=== PATIENT | female | born 1960 | race Caucasian/White ===

== ENCOUNTER 2017-01-14 08:32 | Outpatient (CLI) | payer BC | END 2017-01-14 08:33 | disposition home or self-care (01) | DX: Z12.31 Encounter for screening mammogram for malignant neoplasm of breast (principal) ==

== ENCOUNTER 2017-01-14 08:33 | Outpatient (CLI) | payer BC | END 2017-01-14 08:34 | disposition home or self-care (01) | DX: M85.89 Other specified disorders of bone density and structure, multiple sites (principal); Z82.62 Family history of osteoporosis ==

== ENCOUNTER 2017-03-08 11:03 | Outpatient (CLI) | payer BC | END 2017-03-08 11:04 | disposition home or self-care (01) | LOC: SC 11:03 | PROVIDERS: ATTEND Internal Medicine Pulmonary Disease | DX: G47.30 Sleep apnea, unspecified (principal); G47.8 Other sleep disorders; R06.83 Snoring; R51 Headache; G47.10 Hypersomnia, unspecified | CPT/HCPCS: 99203; 99212 ==

== ENCOUNTER 2017-04-22 09:26 | Outpatient (CLI) | payer BC | END 2017-04-22 09:27 | disposition home or self-care (01) | LOC: SC 09:26 | PROVIDERS: ATTEND Nurse Practitioner Family | DX: G47.8 Other sleep disorders (principal); R06.83 Snoring; G47.30 Sleep apnea, unspecified; R51 Headache; G47.10 Hypersomnia, unspecified | CPT/HCPCS: 99212; 99214 ==

== ENCOUNTER 2018-01-24 15:18 | Outpatient (CLI) | payer BC ==
--- NOTE | 2018-01-25 12:40 | Mammography Report ---
DIGITAL SCREENING MAMMOGRAM: 01/24/2018 CLINICAL INDICATION: A 57-year-old nulliparous patient for screening. COMPARISON: 01/2017, 11/2015, 10/2015, 06/2014, 03/2013. TECHNIQUE: Routine CC and MLO projections as well as bilateral laterally exaggerated craniocaudal views were obtained of the breasts. FINDINGS: The breasts again demonstrate heterogeneously dense fibroglandular parenchyma bilaterally. Coarse and punctate, typically benign calcifications are present. No suspicious masses, clustered microcalcifications, or regions of architectural distortion are identified. IMPRESSION: BENIGN FINDINGS. RECOMMENDATION: Routine annual screening unless otherwise clinically indicated. BI-RADS CATEGORY 2 - BENIGN FINDINGS. STANDARD QUALIFYING STATEMENTS: 1. This examination was reviewed with the aid of Computer-Aided Detection (CAD). 2. A negative or benign imaging report should not delay biopsy if clinically suspicious findings are present. Consider surgical consultation if warranted. More than 5% of cancers are not identified by imaging. 3. Dense breasts may obscure an underlying neoplasm. TD: 01/25/2018 12:16
== END 2018-01-24 15:19 | disposition home or self-care (01) ==
LOC: DI 15:18
PROVIDERS: ATTEND Physician Assistant
DX: Z12.31 Encounter for screening mammogram for malignant neoplasm of breast (principal)
CPT/HCPCS: 77067

== ENCOUNTER 2018-08-08 12:51 | Outpatient (CLI) | payer BC | END 2018-08-08 12:52 | disposition home or self-care (01) | LOC: LAB.F 12:51 | PROVIDERS: ATTEND Nurse Practitioner Family | DX: Z85.43 Personal history of malignant neoplasm of ovary (principal); Z85.42 Personal history of malignant neoplasm of other parts of uterus | CPT/HCPCS: 36415; 86304 ==

== ENCOUNTER 2018-09-02 10:21 | Outpatient (CLI) | payer BC ==
--- NOTE | 2018-09-02 14:05 | Ultrasound Report ---
Reason: INGUINAL ADENOPATHY Procedure Date: 09/02/2018 Accession Number: [id number] / [id number] Procedure: US - Abdomen Limited CPT Code: FULL RESULT: EXAM: ABDOMEN ULTRASOUND LIMITED, RIGHT UPPER QUADRANT. EXAM DATE: 09/02/2018 11:06 AM. CLINICAL HISTORY: Left inguinal adenopathy. History of ovarian cancer. COMPARISON: Abdomen and pelvis with 08/25/2015 10:47 AM, abdomen and pelvis without 08/06/2013 9:01 AM. TECHNIQUE: Real-time scanning was performed with static images obtained. FINDINGS: Left inguinal region: There are several normal-sized/normal morphology inguinal lymph nodes demonstrated on this exam, the largest measuring 1.5 cm in length by roughly 0.4 cm in transverse. A similar size lymph node is evident on comparison CT from 2012. For purposes of comparison, imaging of the right inguinal region demonstrates similar-appearing lymph nodes, largest of which measures 1.6 cm in length. IMPRESSION: Normal size and morphology of bilateral inguinal lymph nodes, likely unchanged from comparison CT of 2013. If this ultrasound result is discordant with physical exam findings, consider cross-sectional imaging with CT for definitive/comprehensive imaging assessment of pelvic and inguinal nodes. RADIA
== END 2018-09-02 10:22 | disposition home or self-care (01) ==
LOC: DI 10:21
PROVIDERS: ATTEND Nurse Practitioner Family
DX: R59.0 Localized enlarged lymph nodes (principal); Z85.43 Personal history of malignant neoplasm of ovary
CPT/HCPCS: 76705

== ENCOUNTER 2019-02-27 15:26 | Outpatient (CLI) | payer BC ==
--- NOTE | 2019-02-28 12:22 | Mammography Report ---
Reason: ENCOUNTER FOR SCREENING MAMMOGRAM FOR MALIGNANT NE Procedure Date: 02/27/2019 Accession Number: [id number] / [id number] Procedure: TETE - Screening Mammo w/Sander CPT Code: FULL RESULT: EXAM: Screening Mammo w/Sander DATE: 02/27/2019 4:01 PM CLINICAL HISTORY: Screening encounter. History of nulliparity. TECHNIQUE: (B) - Bilateral CC, laterally exaggerated CC, MLO views were obtained. COMPARISON: 01/24/2018 through 07/09/2014. PARENCHYMAL PATTERN: (D) - The breast(s) demonstrate(s) heterogeneously dense fibroglandular parenchyma. FINDINGS: There are coarse typically benign calcifications. There are no suspicious masses, calcifications, or areas of distortion. IMPRESSION: Benign findings. BI-RADS category 2. RECOMMENDATION: (ANNUAL) - Recommend routine annual screening mammography. BI-RADS CATEGORY: (2) - Benign Findings. STANDARD QUALIFYING STATEMENTS: 1. This examination was not reviewed with the aid of Computer-Aided Detection (CAD). 2. A negative or benign imaging report should not preclude biopsy if clinically suspicious findings are present. 3. Dense breasts may obscure an underlying neoplasm. 4. This examination was reviewed with the aid of 3D breast imaging (tomosynthesis).
== END 2019-02-27 15:27 | disposition home or self-care (01) ==
LOC: DI 15:26
PROVIDERS: ATTEND Physician Assistant
DX: Z12.31 Encounter for screening mammogram for malignant neoplasm of breast (principal)
CPT/HCPCS: 77063; 77067

== ENCOUNTER 2020-03-25 14:12 | Outpatient (CLI) | payer BC ==
--- NOTE | 2020-03-25 18:06 | DEXA Report ---
Reason: DISORDER OF BONE Procedure Date: 03/25/2020 Accession Number: [id number] / [id number] Procedure: DEX - Dexa Spine and/or Hip CPT Code: Final Report FULL RESULT: PROCEDURE: Dexa Spine and/or Hip INDICATIONS: DISORDER OF BONE TECHNIQUE: Dual energy x-ray absorptiometry (DXA) was performed on a [employer] System. Regions measured are the AP Spine, femoral neck, and if needed forearm. COMPARISON: None. FINDINGS: Lumbar Spine: Bone Mineral Density 0.923 g/cm/cm,T score -2.1, osteopenia Left Hip: Bone Mineral Density 0.808 g/cm/cm,T score -1.6, osteopenia Left Femoral Neck: Bone Mineral Density 0.794 g/cm/cm, T score -1.8, osteopenia (T score greater or equal to -1.0: NORMAL) (T score from -1.1 to -2.4: OSTEOPENIA) (T score less than or equal to -2.5 to: OSTEOPOROSIS) Impression: Osteopenia. Patients with diagnosis of osteoporosis or osteopenia should have regular bone mineral density assessment. For those eligible for Medicare, routine testing is allowed once every 2 years. Testing frequency can be increased for patients who have rapidly progressing disease or for those who are receiving medical therapy to restore bone mass. Reviewed by: Gauri Newell MD, PhD on 03/25/2020 6:05 PM PDT Approved by: Gauri Newell MD, PhD on 03/25/2020 6:05 PM PDT Station ID: [id number]
== END 2020-03-25 14:13 | disposition home or self-care (01) ==
LOC: DI 14:12
PROVIDERS: ATTEND Registered Nurse
DX: M85.89 Other specified disorders of bone density and structure, multiple sites (principal)
CPT/HCPCS: 77080

== ENCOUNTER 2020-03-25 14:13 | Outpatient (CLI) | payer BC ==
--- NOTE | 2020-03-26 15:12 | Mammography Report ---
BILATERAL DIGITAL SCREENING MAMMOGRAM 3D/2D: 03/25/2020 CLINICAL: Routine screening. Comparison is made to exams dated: 02/27/2019 mammogram, 01/24/2018 mammogram, and 01/14/2017 mammogram - [facility]. The tissue of both breasts is heterogeneously dense. This may lower the sensitivity of mammography. No significant masses, calcifications, or other findings are seen in either breast. There has been no significant interval change. IMPRESSION: NEGATIVE There is no mammographic evidence of malignancy. A 1 year screening mammogram is recommended. This exam was interpreted at Station ID: [id number]. NOTE: For mammograms, a report in lay terms will be sent to the patient. Approximately 15% of breast malignancies will not be visualized mammographically. In the management of a palpable breast mass, a negative mammogram must not discourage biopsy of a clinically suspicious lesion. Electronically Signed By: Donn Rios M.D., jr/kathrine:03/25/2020 17:16:15 ACR BI-RADS Category 1: Negative 3341F PARENCHYMAL PATTERN: (D) - The breast(s) demonstrate(s) heterogeneously dense fibroglandular justyn deleon. BI-RADS CATEGORY: (1) - 1 RECOMMENDATION: (ANNUAL) - Recommend routine annual screening mammography. [id number] 1 year screening LATERALITY: (B)
== END 2020-03-25 14:14 | disposition home or self-care (01) ==
LOC: DI 14:13
PROVIDERS: ATTEND Registered Nurse
DX: Z12.31 Encounter for screening mammogram for malignant neoplasm of breast (principal)
CPT/HCPCS: 77063; 77067

== ENCOUNTER 2021-07-25 13:02 | Outpatient (CLI) | payer BC ==
--- NOTE | 2021-07-28 10:28 | Mammography Report ---
BILATERAL DIGITAL SCREENING MAMMOGRAM 3D/2D: 07/25/2021 CLINICAL: Routine screening. Comparison is made to exams dated: 03/25/2020 mammogram, 02/27/2019 mammogram, and 01/24/2018 mammogram - [facility]. The tissue of both breasts is heterogeneously dense. This may lower the sensitivity of mammography. No significant masses, calcifications, or other findings are seen in either breast. There has been no significant interval change. IMPRESSION: NEGATIVE There is no mammographic evidence of malignancy. A 1 year screening mammogram is recommended. This exam was interpreted at Station ID: [id number]. NOTE: For mammograms, a report in lay terms will be sent to the patient. Approximately 15% of breast malignancies will not be visualized mammographically. In the management of a palpable breast mass, a negative mammogram must not discourage biopsy of a clinically suspicious lesion. Electronically Signed By: Anushka franco/kathrine:07/25/2021 14:12:03 ACR BI-RADS Category 1: Negative 3341F PARENCHYMAL PATTERN: (D) - The breast(s) demonstrate(s) heterogeneously dense fibroglandular justyn deleon. BI-RADS CATEGORY: (1) - 1 RECOMMENDATION: (ANNUAL) - Recommend routine annual screening mammography. [id number] 1 year screening LATERALITY: (B)
== END 2021-07-25 13:03 | disposition home or self-care (01) ==
LOC: DI 13:02
PROVIDERS: ATTEND Registered Nurse
DX: Z12.31 Encounter for screening mammogram for malignant neoplasm of breast (principal)

== ENCOUNTER 2023-07-06 14:02 | Outpatient (CLI) | payer BC ==
--- NOTE | 2023-07-07 11:44 | Mammography Report ---
BILATERAL DIGITAL SCREENING MAMMOGRAM 3D/2D: 07/06/2023 CLINICAL: Routine screening. Comparison is made to exams dated: 07/25/2021 mammogram, 03/25/2020 mammogram, 02/27/2019 mammogram, mammogram, 01/14/2017 mammogram, and 11/27/2015 mammogram - [facility]. Both breasts are heterogeneously dense, which may obscure small masses (category c / 51-75% glandular tissue). No significant masses, calcifications, or other findings are seen in either breast. There has been no significant interval change. IMPRESSION: NEGATIVE There is no mammographic evidence of malignancy. A 1 year screening mammogram is recommended. Based on the Tyrer Cuzick model (a risk assessment model) the patients lifetime risk is 13.8% and he r 10 year risk is 6.8%. According to the ACR, ACS, and NCCN guidelines, an annual breast MRI exam félix ng with mammogram is recommended if the patients lifetime risk is 20% or greater. This exam was interpreted at Station ID: [id number]. NOTE: For mammograms, a report in lay terms will be sent to the patient. Approximately 15% of breast malignancies will not be visualized mammographically. In the management of a palpable breast mass, a negative mammogram must not discourage biopsy of a clinically suspicious lesion. Electronically Signed By: Rogers duval/kathrine:07/06/2023 17:55:18 letter sent: No_Letter ACR BI-RADS Category 1: Negative 3341F PARENCHYMAL PATTERN: (D) - The breast(s) demonstrate(s) heterogeneously dense fibroglandular justyn deleon. BI-RADS CATEGORY: (1) - 1 Mammogram [id number] 1 year screening LATERALITY: (B)
== END 2023-07-06 14:03 | disposition home or self-care (01) ==
LOC: DI 14:02
PROVIDERS: ATTEND Registered Nurse
DX: Z12.31 Encounter for screening mammogram for malignant neoplasm of breast (principal); R92.333 Mammographic heterogeneous density, bilateral breasts

== ENCOUNTER 2023-08-03 12:59 | Outpatient (CLI) | payer BC ==
--- NOTE | 2023-08-03 14:39 | DEXA Report ---
PROCEDURE: Dexa Spine and/or Hip INDICATIONS: OSTEOPENIA TECHNIQUE: Dual energy x-ray absorptiometry (DXA) was performed on a [employer] System. Regions measur ed are the AP Spine, femoral neck, and if needed forearm. COMPARISON: Osteopenia FINDINGS: Lumbar Spine: Bone Mineral Density 0.898 g/cm/cm,T score -2.4. Osteopenia Left Femoral Neck: Bone Mineral Density 0.765 g/cm/cm, T score -2.0. Left Hip: Bone Mineral Density 0.766 g/cm/cm,T score -1.9. Osteopenia (T score greater or equal to -1.0: NORMAL) (T score from -1.1 to -2.4: OSTEOPENIA) (T score less than or equal to -2.5 to: OSTEOPOROSIS) Impression: By WHO criteria, this patient has low bone density (osteopenia). Patients with diagnosis of osteoporosis or osteopenia should have regular bone mineral density assess ment. For those eligible for Medicare, routine testing is allowed once every 2 years. Testing frequ ency can be increased for patients who have rapidly progressing disease or for those who are receivin g medical therapy to restore bone mass. Reviewed by: Eloy Ramos on 08/03/2023 2:38 PM PST Approved by: Eloy Ramos on 08/03/2023 2:38 PM PST Station ID: [id number]
== END 2023-08-03 13:00 | disposition home or self-care (01) ==
LOC: DI 12:59
PROVIDERS: ATTEND Registered Nurse
DX: M85.89 Other specified disorders of bone density and structure, multiple sites (principal)